=== PATIENT | female | born 1955 | race Caucasian/White ===

== ENCOUNTER → 2016-08-13 | Outpatient (CLI) | payer MEDICAID ==
--- NOTE | 2016-08-13 17:00 | CT ---
CT Scan of the Abdomen and Pelvis (Without IV Contrast) Clinical Indications: Evaluate left lower quadrant hernia. Comparison: November 09, 2009. Technique: No intravenous contrast was given. Multidetector helical CT imaging is performed from th e diaphragm to the symphysis pubis. Dose reduction techniques were utilized. The patient was imaged d uring Valsalva. Findings: There is patchy scarring at the right base that is stable compared to November 2009. There is a multilevel fusion from the lower thoracic spine through the sacrum. The liver, spleen, kidneys, pa ncreas, and adrenals are unremarkable. Small bowel is unremarkable. There is an ostomy in the right l ower quadrant. There is some thinning of the abdominal musculature in the left lower quadrant without definite hernia. Impressions 1. Diastasis of the abdominal musculature in the left lower quadrant without evidence of hernia. 2. Right lower quadrant ostomy. 3. Multilevel fusion T11 through the sacrum.
== END ==
LOC: FIMAGING 14:13
PROVIDERS: ATTEND Surgery
DX: M62.08 Separation of muscle (nontraumatic), other site (principal)

== ENCOUNTER 2016-11-08 17:35 | Emergency (ER) | payer MEDICAID ==
--- NOTE | 2016-11-08 18:02 | EDPHY ---
H & P Stated Complaint: tripped at home(hasn't been sleeping)hit face/ Time Seen by Provider: 11/08/16 17:51 HPI/ROS: CHIEF COMPLAINT: Fall HISTORY OF PRESENT ILLNESS: Patient is a 60-year-old female who comes to the emergency department complaining of a headache and nasal deformity. She states that around 7 o'clock this morning she was extremely tired and just "stopped moving". She fell and hit her nose on the tile. She did not lose consciousness. She has had some swelling at the bridge of her nose however. no epistaxis, ever since she has had a mild headache and mild neck pain. She has a history of thoracic and lumbar spinal surgery for scoliosis. She also complains of mild right wrist pain. She has also had orthopedic surgery in her right wrist for previous fall. She denies syncope. She denies chest pain or shortness of breath. She denies palpitations. REVIEW OF SYSTEMS: Constitutional: denies: chills, fever, recent illness, recent injury EENTM: See HPI Respiratory: denies: cough, shortness of breath Cardiac: denies: chest pain, irregular heart rate, lightheadedness, palpitations Gastrointestinal/Abdominal: denies: abdominal pain, diarrhea, nausea, vomiting, blood streaked stools Genitourinary: denies: dysuria, frequency, hematuria, pain Musculoskeletal: See HPI Skin: denies: lesions, rash, jaundice, bruising Neurological: denies: headache, numbness, paresthesia, tingling, dizziness, weakness Hematologic/Lymphatic: denies: blood clots, easy bleeding, easy bruising Immunologic/allergic: denies: HIV/AIDS, transplant EXAM: GENERAL: Well-appearing, well-nourished and in no acute distress. HEAD: Small abrasion to left anterior forehead no hematoma or crepitus , normocephalic. EYES: Pupils equal round and reactive to light, extraocular movements intact, sclera anicteric, conjunctiva are normal. ENT: TMs normal, nares patent, bruising and swelling to nasal bridge, no laceration, oropharynx clear without exudates. Moist mucous membranes. NECK: Normal range of motion, supple without lymphadenopathy or JVD. LUNGS: Breath sounds clear to auscultation bilaterally and equal. No wheezes rales or rhonchi. HEART: Regular rate and rhythm without murmurs, rubs or gallops. ABDOMEN: Soft, nontender, normoactive bowel sounds. No guarding, no rebound. No masses appreciated. BACK: No CVA tenderness, no spinal tenderness, step-offs or deformities EXTREMITIES: Normal range of motion, no pitting or edema. No clubbing or cyanosis. NEUROLOGICAL: Cranial nerves II through XII grossly intact. Normal speech, normal gait. 5/5 strength, normal movement in all extremities, normal sensation PSYCH: Normal mood, normal affect. SKIN: Warm, dry, normal turgor, no visible rashes or lesions. Source: Patient Exam Limitations: No limitations - Personal History Current Tetanus/Diphtheria Vaccine: Unsure Tetanus Vaccine Date: < 10 YEARS - Medical/Surgical History Hx Asthma: No Hx Chronic Respiratory Disease: No Hx Diabetes: No Hx Cardiac Disease: No Hx Renal Disease: No Hx Cirrhosis: No Hx Alcoholism: No Hx HIV/AIDS: No Hx Splenectomy or Spleen Trauma: No Other PMH: Chronic pain./pain management. back fusion. ileostomy, ulcerative colitis, PE - Family History Significant Family History: No pertinent family hx - Social History Smoking Status: Never smoked Alcohol Use: None Drug Use: None Constitutional: Initial Vital Signs Temperature (C) 36.5 C 11/08/16 17:38 Heart Rate 69 11/08/16 17:38 Respiratory Rate 20 11/08/16 17:38 Blood Pressure 156/99 H 11/08/16 17:38 O2 Sat (%) 97 11/08/16 17:38 O2 Delivery Mode Room Air Allergies/Adverse Reactions: ibuprofen Allergy (Verified 11/08/16 17:36) peanut Allergy (Verified 11/08/16 17:36) NUTS Allergy (Uncoded 08/27/15 14:51) Home Medications: Medication Instructions Recorded Amitiza 08/27/15 Fentanyl 08/27/15 Hydromorphone 08/27/15 Lasix 08/27/15 Meloxicam 08/27/15 Medical Decision Making - Diagnostics Imaging: X-ray: Right wrist x-ray was obtained. I viewed the images myself on the PACS system. My interpretation of the images is: Negative for acute disease. The radiologist interpretation is negative for acute injury. Results: CT scan of the head and cervical spine was obtained. The results of the study are negative for acute traumatic injury. The study was read by Dr. Medrano. I viewed the images myself on the PACS system. ED Course/Re-evaluation: Head CT ordered in this adult patient for trauma for the following indication: Severe headache 6:45 p.m. we discussed her CT and imaging results. She is relieved. She is eager to be discharged. She declines further workup or testing at this time. Discussed indications for returning. Differential Diagnosis: Partial list of the Differential diagnosis considered include but were not limited to; head injury, neck injury, nasal bone fracture, wrist injury and although unlikely based on the history and physical exam, I also considered non accidental trauma, infection. I discussed these differential diagnoses and the plan with the patient as well as the usual and expected course. The patient understands that the diagnosis is provisional and that in medicine we are not always correct and that further workup is often warranted. Usual and customary warnings were given. All of the patient's questions were answered. The patient was instructed to return to the emergency department should the symptoms at all worsen or return, otherwise to followup with the physician as we discussed. Departure - Departure Disposition: Home, Routine, Self-Care Clinical Impression: Contusion Qualifiers: Encounter type: initial encounter Contusion area: head Contusion of head detail : nose Qualified Code(s): S00.33XA - Contusion of nose, initial encounter Condition: Fair Instructions: Facial Contusion (ED) Referrals: Tracey Brody MD [Primary Care Provider] - As per Instructions
[2016-11-08 19:06] VITALS: BP 148/89; PULSE 68; RESP 18; TEMP 97.9; O2SAT 95
== END 2016-11-08 19:05 | disposition home or self-care (01) ==
DX: S00.33XA Contusion of nose, initial encounter (principal); Z91.010 Allergy to peanuts; W01.198A Fall on same level from slipping, tripping and stumbling with subsequent striking against other object, initial encounter; Y92.009 Unspecified place in unspecified non-institutional (private) residence as the place of occurrence of the external cause

== ENCOUNTER 2016-12-08 21:44 | Emergency (ER) | payer MEDICAID ==
--- NOTE | 2016-12-08 21:53 | EDPHY ---
H & P Time Seen by Provider: 12/08/16 21:49 - Personal History Tetanus Vaccine Date: < 10 YEARS - Medical/Surgical History Hx Asthma: No Hx Chronic Respiratory Disease: No Hx Diabetes: No Hx Cardiac Disease: No Hx Renal Disease: No Hx Cirrhosis: No Hx Alcoholism: No Hx HIV/AIDS: No Hx Splenectomy or Spleen Trauma: No Other PMH: Chronic pain./pain management. back fusion. ileostomy, ulcerative colitis, PE - Social History Smoking Status: Never smoked Allergies/Adverse Reactions: ibuprofen Allergy (Verified 11/08/16 17:36) peanut Allergy (Verified 11/08/16 17:36) NUTS Allergy (Uncoded 08/27/15 14:51) Home Medications: Medication Instructions Recorded Amitiza 08/27/15 Fentanyl 08/27/15 Hydromorphone 08/27/15 Lasix 08/27/15 Meloxicam 08/27/15 Medical Decision Making ED Course/Re-evaluation: CHIEF COMPLAINT: Nose injury two days ago. HISTORY OF PRESENT ILLNESS: The patient is a 60-year-old female who presents after striking her nose on a shelf in her bathroom two days ago. She did not experience any bleeding at that time or since then. She does not have any difficulty breathing. She denies other complaints at this time. REVIEW OF SYSTEMS: A 10 point review of systems was performed and is negative with the exception of the elements mentioned in the history of present illness. PHYSICAL EXAM: HR, BP, O2 Sat, RR. Temp noted General Appearance: Alert, well hydrated, appropriate, and non-toxic appearing. Head: Atraumatic without scalp tenderness or obvious injury Eyes: Pupils equal, round, reactive to light and accommodation, EOMI, no trauma , no injection. Ears: Clear bilaterally, no perforation, normal landmarks Nose: No rhinorrhea, clear. Mild swelling. No septal hematoma. Throat: There is no erythema or exudates, no lesions, normal tonsils, mucus membranes moist. Neck: Supple, 2+ carotid upstroke, nontender, no lymphadenopathy. Respiratory: No retractions, no distress, no wheezes, and no accessory muscle use. Lungs are clear to auscultation bilaterally. Cardiovascular: Regular rate and rhythm, no murmurs, rubs, or gallops. Bilateral carotid, radial, dorsalis pedis, and posterior tibial pulses intact. Good capillary refill all extremities. Gastrointestinal: Abdomen is soft, nontender, non-distended, no masses, no rebound, no guarding, no peritoneal signs. Musculoskeletal: Normal active ROM of all extremities, atraumatic. Neurological: Alert, appropriate, and interactive. The patient has normal DTRs and non-focal cranial nerves, motor, sensory, and cerebellar exam. Skin: No rashes, good turgor, no nodules on palpation. Past medical history: Ulcerative colitis, PE. Past surgical history: Spinal fusion. Family history: N/A. Social history: Here alone. DIFFERENTIAL DIAGNOSIS: The differential diagnosis includes but is not limited to: nasal fracture, hematoma, contusion. MEDICAL DECISION MAKIN-year-old female presents with mildly swollen nose after she struck it 2 days ago. She has not bled at all from the injury. There is no evidence of septal hematoma. She can breathe well out of both nostrils. I discussed the treatment options with her. I explained I have limited ability to treat this in the ER. She will be given a plastic surgeon follow up. She is comfortable with this plan. Departure - Departure Disposition: Home, Routine, Self-Care Clinical Impression: Nasal contusion Qualifiers: Encounter type: initial encounter Qualified Code(s): S00.33XA - Contusion of nose, initial encounter Condition: Good Instructions: Nasal Contusion (ED) Additional Instructions: Call Dr. Hernandez, plastic surgery, tomorrow to set up a follow up appointment. Return for any serious worsening of condition. Referrals: Tracey Brody MD [Primary Care Provider] - As per Instructions Derrick Hernandez MD [Medical Doctor] - As per Instructions Report Scribed for: Rusty Bear Report Scribed by: Uriel Whitaker Date of Report: 12/08/16 Time of Report: 21:53
[2016-12-08 22:00] VITALS: BP 144/92; PULSE 85; RESP 16; TEMP 97.9; O2SAT 97
== END 2016-12-08 22:01 | disposition home or self-care (01) ==
DX: S00.33XA Contusion of nose, initial encounter (principal); W22.8XXA Striking against or struck by other objects, initial encounter; Y92.091 Bathroom in other non-institutional residence as the place of occurrence of the external cause

== ENCOUNTER 2016-12-16 22:46 | Emergency (ER) | payer MEDICAID ==
--- NOTE | 2016-12-16 23:45 | EDPHY ---
H & P Stated Complaint: pain, reddness and swell in L leg, no trauma Time Seen by Provider: 12/16/16 23:06 HPI/ROS: Chief Complaint: Leg pain and swelling HPI: 60-year-old woman noticed pain in her foot last night. Woke up this morning with an area of redness and her front of her left leg with some swelling. She is concerned about a possible blood clot in her leg. No chest pain or shortness of breath. No history of DVTs or blood clots in the past. No family history of DVTs. No periods of immobility or travel. Fevers or chills. Denies any trauma to that area. No nausea or vomiting. ROS: 10 point Review of Systems is negative except as noted in the HPI. PMH: Colitis status post colectomy and ostomy, chronic back pain secondary to spinal surgeon scoliosis repair Medications: Pain medications Allergies: Ibuprofen Social History: No smoking, occasional alcohol, no recreational drug use Family History: non-contributory Physical Exam: Gen: Awake, Alert, No Distress HEENT: Nose: no rhinorrhea Eyes: PERRLA, EOMI Mouth: Moist mucosa Neck: Supple, no JVD Chest: nontender, lungs clear to auscultation Heart: S1, S2 normal, no murmur Abd: Soft, non-tender, no guarding Back: no CVA tenderness, no midline tenderness Ext: mild left calf tenderness. Mild left calf swelling, small area of erythema on the anterior left pitts, is not warm to touch. Mildly cellulitic appearing Neuro: CN II-XII intact, Sensation grossly intact, Strength 5/5 in bilateral upper and lower extremities - Personal History Current Tetanus/Diphtheria Vaccine: Yes Current Tetanus Diphtheria and Acellular Pertussis (TDAP): Yes Tetanus Vaccine Date: < 10 YEARS - Medical/Surgical History Hx Asthma: No Hx Chronic Respiratory Disease: No Hx Diabetes: No Hx Cardiac Disease: No Hx Renal Disease: No Hx Cirrhosis: No Hx Alcoholism: No Hx HIV/AIDS: No Hx Splenectomy or Spleen Trauma: No Other PMH: Chronic pain/pain management, back fusion,. ileostomy, ulcerative colitis, PE, right wrist surgery - Social History Smoking Status: Never smoked Constitutional: Initial Vital Signs Temperature (C) 36.7 C 12/16/16 23:07 Heart Rate 91 12/16/16 23:07 Respiratory Rate 16 12/16/16 23:07 Blood Pressure 260/102 H 12/16/16 23:07 O2 Sat (%) 94 12/16/16 23:07 O2 Delivery Mode Room Air Allergies/Adverse Reactions: ibuprofen Allergy (Verified 11/08/16 17:36) peanut Allergy (Verified 11/08/16 17:36) NUTS Allergy (Uncoded 08/27/15 14:51) Home Medications: Medication Instructions Recorded Amitiza 08/27/15 Fentanyl 08/27/15 Hydromorphone 08/27/15 Lasix 08/27/15 Meloxicam 08/27/15 Cephalexin [Keflex (*)] 500 mg PO Q6H #28 cap 12/17/16 Medical Decision Making - Diagnostics Imaging Results: Ultrasound is negative for acute DVT per Dr. Howard Imaging: Discussed imaging studies w/ call center specialist Radiologist ED Course/Re-evaluation: Patient with small area of left leg erythema. She is negative for DVT. Is could represent an early cellulitis. Will start her on some Keflex. Follow up with primary care physician in 2-3 days for re-evaluation. Departure - Departure Disposition: Home, Routine, Self-Care Clinical Impression: Cellulitis Condition: Good Instructions: Cellulitis (ED), Cephalexin (By mouth) Additional Instructions: Follow up with primary care physician in 2-3 days for re-evaluation. Return to the emergency depart for increasing redness, streaking up her leg, fevers, chills, or any other concerns. Referrals: Tracey Brody MD [Primary Care Provider] - As per Instructions Prescriptions: Cephalexin [Keflex (*)] 500 mg PO Q6H #28 cap
[2016-12-17 02:12] VITALS: BP 139/91; PULSE 74; RESP 14; TEMP 97.5; O2SAT 97
[2016-12-17] MEDS ORDERED: CEPHALEXIN 500MG PREPACK#4 BTL TAKEHOME ONE (02:17)
== END 2016-12-17 02:42 | disposition home or self-care (01) ==
DX: L03.116 Cellulitis of left lower limb (principal)

== ENCOUNTER 2017-08-09 01:42 | Emergency (ER) | payer MEDICAID ==
[2017-08-09 01:50] VITALS: BP 128/86; PULSE 97; RESP 18; TEMP 98.6; O2SAT 97
--- NOTE | 2017-08-09 02:23 | EDPHY ---
H & P Stated Complaint: L ankle pain, swelling, difficulty walking Time Seen by Provider: 08/09/17 02:17 HPI/ROS: Chief Complaint: Left ankle swelling HPI: 61-year-old woman noticed 24 hr ago some redness and discomfort on the inside of her left ankle. She has a similar episode in the past was diagnosed with cellulitis. She states that it is uncomfortable and has been warm to the touch. She has had no fever or chills. No calf pain or swelling. No chest pain or shortness of breath. It does hurt when she ambulates. She has not been taking any medications for this. ROS: 10 point Review of Systems is negative except as noted in the HPI. PMH: Ulcerative colitis status post ileostomy Social History: No smoking Family History: non-contributory Physical Exam: Gen: Awake, Alert, No Distress HEENT: Nose: no rhinorrhea Eyes: PERRLA, EOMI Mouth: Moist mucosa Neck: Supple, no JVD Ext:she had area of erythema on the medial aspect of her left leg proximal to the ankle joint. She has no calf tenderness, no calf swelling. She has full range of motion of pain. Is no erythema or tenderness over the joint. Full range of motion of the ankle joint without difficulty. Is non circumferential. There is no streaking. Skin: Per extremity exam Neuro: CN II-XII intact, Sensation grossly intact, Strength 5/5 in bilateral upper and lower extremities - Personal History Tetanus Vaccine Date: < 10 YEARS - Medical/Surgical History Hx Asthma: No Hx Chronic Respiratory Disease: No Hx Diabetes: No Hx Cardiac Disease: No Hx Renal Disease: No Hx Cirrhosis: No Hx Alcoholism: No Hx HIV/AIDS: No Hx Splenectomy or Spleen Trauma: No Other PMH: Chronic pain/pain management, back fusion,. ileostomy, ulcerative colitis, PE, right wrist surgery - Social History Smoking Status: Never smoked Constitutional: Initial Vital Signs Temperature (C) 37.0 C 08/09/17 01:48 Heart Rate 97 08/09/17 01:48 Respiratory Rate 18 08/09/17 01:48 Blood Pressure 128/86 H 08/09/17 01:48 O2 Sat (%) 97 08/09/17 01:48 O2 Delivery Mode Room Air Allergies/Adverse Reactions: ibuprofen Allergy (Verified 08/09/17 01:47) peanut Allergy (Verified 08/09/17 01:47) NUTS Allergy (Uncoded 08/09/17 01:47) Home Medications: Medication Instructions Recorded Amitiza 08/27/15 Fentanyl 08/27/15 Hydromorphone 08/27/15 Lasix 08/27/15 Meloxicam 08/27/15 Cephalexin [Keflex (*)] 500 mg PO Q6H #28 cap 12/17/16 Cephalexin [Keflex (*)] 500 mg PO Q6H #40 cap 08/09/17 Medical Decision Making ED Course/Re-evaluation: Patient has findings consistent with cellulitis. She has no calf tenderness or swelling suggesting a DVT. There is no erythema or lying the joints suggestive of infected joint. Start her on Keflex and refer her to her primary care physician for follow-up. She states she has an appointment already scheduled on Friday. She will return for worsening. Departure - Departure Disposition: Home, Routine, Self-Care Clinical Impression: Cellulitis Condition: Good Instructions: Cellulitis (ED) Additional Instructions: Please take your full course of antibiotics. Follow up with her primary care physician as scheduled in 3 days. Return to the emergency department for increasing redness, fevers, worsening pain, or any other concerns. Referrals: Tracey Brody MD [Primary Care Provider] - As per Instructions Prescriptions: Cephalexin [Keflex (*)] 500 mg PO Q6H #40 cap
[2017-08-09] MEDS ORDERED: CEPHALEXIN 500MG PREPACK#4 BTL TAKEHOME ONE (02:25)
== END 2017-08-09 02:41 | disposition home or self-care (01) ==
DX: L03.116 Cellulitis of left lower limb (principal); Z91.010 Allergy to peanuts

== ENCOUNTER 2017-10-04 16:19 | Emergency (ER) | payer MEDICAID ==
[2017-10-04 16:25] VITALS: RESP 18; TEMP 98.2
--- NOTE | 2017-10-04 17:06 | EDPHY ---
General Time Seen by Provider: 10/04/17 16:58 Narrative: CHIEF COMPLAINT: Knee pain, injury HISTORY OF PRESENT ILLNESS: Patient complains of right knee pain status post injury. She reports slipping and twisting her right knee on Friday. This was in her own home. After twisting it she fell, with her knee bent at approximately 90. She struck her knee on a hard tile floor. She did not injure herself anywhere else. Since then she has had some pain and swelling of the knee, more over the lateral and anterior aspect. Pain has improved but not resolved. She does have persistent swelling on the lateral aspect of the knee. She is able to ambulate but with some pain. No numbness or tingling distally. No pain in the ipsilateral foot, ankle or hip. No other associated complaints or modifying factors. REVIEW OF SYSTEMS: Ten systems reviewed and are negative unless otherwise noted in the HPI PCP: Dr. Franklyn Brody SPECIALISTS: Orthopedist in [place] at [facility] PAST MEDICAL HISTORY: Ulcerative colitis, osteoarthritis, lumbar stenosis PAST SURGICAL HISTORY: Recent removal are of lumbar surgical hardware. SOCIAL HISTORY: Nonsmoker. Occasional alcohol. No drug use. Lives here locally. Originally from [place]. Retired FAMILY HISTORY: Noncontributory EXAMINATION General Appearance: Alert, no distress Head: normocephalic, atraumatic Cardiovascular: Regular rate. Symmetric DP and PT pulses 2+. Brisk cap refill on the toes of the right foot. Back: non-tender, no bony abnormalities. There are 2 surgical incisions on the lumbar soft tissue regions with dressings that are clean, dry and intact. I did not remove the dressings. Neurological: A&O, nonfocal, normal gait. Patellar reflexes symmetric. Strength is 5/5 in both ankles. Normal proprioception of the right great toe. Skin: Warm and dry, no rash. Surgical incisions as above. No laceration, abrasion or ecchymosis of the right knee. Extremities: Tenderness of the right knee on the anterior midline and lateral joint line. No crepitus. No instability. Negative drawer test. Range of motion is symmetric to the left. Neurovascular intact distal to the knee pain. Psychiatric: Mood and affect normal DIFFERENTIAL DIAGNOSES: Including but not limited to sprain, strain, fracture, hemarthrosis, effusion, subluxation MDM: 5:05 p.m. Acute right knee pain that I suspect is a sprain type injury. Low clinical suspicion for bony injury but she does have bony tenderness ago I have ordered x -ray. She is neuro intact distally. She is ambulatory without assistance. No injury elsewhere a 5:20 p.m. My interpretation of the x-ray without the aid of the radiologist is no acute fracture. There are some osteoarthritic changes. 5:35 p.m. X-ray has been read as negative for any acute findings by radiologist. I have informed the patient of this. We provided a disc of the images as she may follow up with Orthopedics she saw previously at a different location. I provided the on-call orthopedist darren for her follow-up should she needed. We discussed weight-bearing as tolerated. We discussed ice and elevation. We discussed taking her previous prescription of meloxicam for 5-7 days as needed. We discussed ED precautions. I have answered all her questions and she is discharged home stable condition. SUPERVISION: This patient was independently evaluated without direct involvement of or examination by the attending physician. - Diagnostics Imaging Results: Imaging Impressions Knee X-Ray 10/04/17 17:06 Impression: Negative for fracture with a joint effusion noted. - History Smoking Status: Former smoker - Objective Vital Signs: Initial Vital Signs Temperature (C) 98.2 F 10/04/17 16:20 Heart Rate 65 10/04/17 16:20 Respiratory Rate 18 10/04/17 16:20 Blood Pressure 139/59 H 10/04/17 16:20 O2 Sat (%) 97 10/04/17 16:20 O2 Delivery Mode Room Air Allergies/Adverse Reactions: ibuprofen Allergy (Unknown, Verified 10/04/17 16:25) peanut Allergy (Verified 10/04/17 16:20) NUTS Allergy (Uncoded 08/09/17 01:47) Home Medications: Medication Instructions Recorded Amitiza 08/27/15 Hydromorphone 08/27/15 Lasix 08/27/15 Meloxicam 08/27/15 Departure - Departure Disposition: Home, Routine, Self-Care Clinical Impression: Right knee sprain Qualifiers: Encounter type: initial encounter Involved ligament of knee: unspecified ligament Qualified Code(s): S83.91XA - Sprain of unspecified site of right knee , initial encounter Condition: Good Instructions: Knee Sprain (ED) Additional Instructions: 1. Weightbearing as tolerated 2. Follow up with your established orthopedist or the on-call orthopedist and I have provided on your paperwork 3. Ice and elevate often 4. ED precautions as discussed Referrals: Tracey Brody MD [Primary Care Provider] - As per Instructions Cooper Way MD [Medical Doctor] - As per Instructions
[2017-10-04 17:47] VITALS: BP 135/83; PULSE 74; O2SAT 96
== END 2017-10-04 17:51 | disposition home or self-care (01) ==
LOC: EEVIPCON 16:19
DX: S83.91XA Sprain of unspecified site of right knee, initial encounter (principal); Z87.891 Personal history of nicotine dependence; W01.198A Fall on same level from slipping, tripping and stumbling with subsequent striking against other object, initial encounter

== ENCOUNTER → 2018-07-01 | Outpatient (CLI) | payer MEDICAID | LOC: FIMAGING 13:18 | PROVIDERS: ATTEND Family Medicine | DX: N28.1 Cyst of kidney, acquired (principal) ==

== ENCOUNTER 2018-11-22 19:10 | Emergency (ER) | payer MEDICAID ==
[2018-11-22 19:18] VITALS: BP 122/84
--- NOTE | 2018-11-22 19:45 | EDPHY ---
General Time Seen by Provider: 11/22/18 19:44 Narrative: CLINICAL IMPRESSION: Right knee pain and swelling ASSESSMENT/PLAN: Patient is a 62-year-old female who presents with complaint of acute on chronic right knee pain. Patient is nontoxic-appearing, she is in no acute distress on arrival. Patient discloses that she has followed up with her primary care doctor, has received physical therapy and has even been to the ortho urgent care with recommendation for formal orthopedic surgery follow-up for her ongoing right knee pain and swelling. She has not followed up as previously recommended. She has had no new injury to warrant repeat imaging today. There were no findings to suggest fracture, dislocation, compartment syndrome, DVT, cellulitis, septic arthritis or neurovascular compromise. Her history and physical examination is most consistent with acute on chronic right knee pain and swelling. Patient has not been using compression, and Kirill wrap was placed. She was able to ambulate without difficulty and independently. She already has an appointment scheduled with her primary care provider on Friday, I discussed the possibility of requiring additional imaging to include MRI versus additional physical therapy. The patient will continue compression, elevation and activity as tolerated. Return precautions discussed-patient to return to the emergency Department for significantly worsening or uncontrolled pain, significant swelling, numbness or tingling of the extremity, paleness or coolness of her digits, fever or for any other concerning symptom. The patient verbalizes understanding and she is in agreement with this plan. DIFFERENTIAL DX: Knee injury several months prior including but not limited to effusion, fracture , ACL injury, contusion, muscular strain, and meniscus injury. ED COURSE: 2000: Records reviewed, patient originally seen and evaluated October 04 2017, x-ray was performed at that time which revealed no acute bony abnormality. CHIEF COMPLAINT: Right knee pain HPI: Patient is a 62-year-old female with a history of remote knee injury who presents to the emergency department with ongoing knee pain. Patient reports several months prior she had a fall striking her knee on the tile floor. She reports being seen and evaluated in the emergency department at that time. Patient reports she followed up with her primary care provider as directed, has completed physical therapy but continues to have pain. She also reports that she was seen and evaluated by Ortho urgent care, they recommended physical therapy and follow-up which she has not done. She denies any new injury. She is just frustrated that she continues to have ongoing pain and swelling. She denies any redness of the joint, she has had no fevers. No history of surgery to this knee. Patient reports that pain increases with standing for long periods of time, she is noting swelling on the medial superior aspect. She has not been taking anything for pain, she has not been using any compression. She denies any other injury or complaint. PAST MEDICAL HISTORY: Ulcerative colitis, osteoarthritis, lumbar stenosis Pertinent Past Surgical History: Bowel resection, spine surgery Social History: Denies cigarette smoking or illicit drug use ROS: A full 10 point review of systems was negative except for those mentioned in HPI. PHYSICAL EXAM: General Appearance: Alert, well-appearing and in no acute distress. HENT: Normocephalic, atraumatic TMs are clear bilaterally no perforation or FB, no injection, no evidence of serous or mucopurulent otitis. Oropharynx clear is no erythema or exudates, no tonsillar hypertrophy or asymmetry. Dentition without abnormality. Eyes: PERRLA, no acute vision change, nystagmus, swelling, discharge, pain or photosensitivity. Conjunctiva pink, no pallor or injection Neck: Supple, nontender, no lymphadenopathy, no midline pain, FROM. Respiratory: There are no retractions, lungs are clear to auscultation. Cardiac: Regular rate and rhythm, no murmurs or gallops. Gastrointestinal: Abdomen is soft, nontender, bowel sounds normal, no masses/ hernia, no rigidity, guarding or focal peritoneal findings. Skin: Warm, dry, no rashes, no nodules on palpation. Upper Extremities: Bilateral upper extremities are unremarkable. Intact distal pulses, Full range of motion intact, no tenderness, no ecchymosis or edema Lower Extremities: Left lower extremity is unremarkable- Intact distal pulses, No edema, No tenderness, No cyanosis, full range of motion intact. Right thigh compartment is soft and nontender. Patient has generalized mild edema to the superior medial knee, she has generalized tenderness to palpation. She has no posterior fullness or tenderness. She does have some palpable varicosities on her inner leg that are nontender and without erythema. There is no anterior or posterior laxity. There is no erythema. She has no pain with passive range of motion. Right lower extremities otherwise unremarkable. 2+ dorsalis pedis. No calf tenderness bilaterally. MEDICAL DECISION MAKING: Patient was seen independently. Secondary supervising physician at time of evaluation was Dr. Lopez, he did not evaluate this patient. Diagnosis: Acute on chronic right knee pain and swelling. Summary: See Assessment and Plan for summary of ED visit Clinical lab tests: Not applicable. Independent visualization of images, tracing, or specimens: Not applicable. Decision to obtain medical records or history from someone other than the patient: No Review / Summarize previous medical records: Yes Discussed patient with another provider: Yes, Dr. Lopez Patient Progress: Stable, discharge. - History Smoking Status: Former smoker - Objective Vital Signs: Initial Vital Signs Temperature (C) 36.8 C 11/22/18 19:16 Heart Rate 99 11/22/18 19:16 Respiratory Rate 16 11/22/18 19:16 Blood Pressure 122/84 H 11/22/18 19:16 O2 Sat (%) 98 11/22/18 19:16 O2 Delivery Mode Room Air Allergies/Adverse Reactions: ibuprofen Allergy (Unknown, Verified 11/22/18 19:15) peanut Allergy (Verified 11/22/18 19:15) NUTS Allergy (Uncoded 11/22/18 19:15) Home Medications: Medication Instructions Recorded Amitiza 08/27/15 Hydromorphone 08/27/15 Lasix 08/27/15 Meloxicam 08/27/15 Departure - Departure Disposition: Home, Routine, Self-Care Clinical Impression: Knee pain, chronic Condition: Good Instructions: Swollen Knee Joint (ED), Knee Pain (ED) Additional Instructions: DISCHARGE INSTRUCTIONS FROM YOUR DOCTOR Thank you for visiting our emergency department today. Please keep in mind that discharge from the emergency department does not mean that there is nothing wrong - it simply means that we have not identified an emergency condition that requires further evaluation or treatment in the hospital. Follow-up with your primary care provider on Friday as we discussed. You have been provided an orthopedic referral, please follow-up. Ice on and off to the affected knee. Elevate as much as possible. Wear the KIRILL wrap for compression to help decrease the swelling. Limit your activity, weight-bearing as tolerated. For pain control: You may take Tylenol, I recommend 500-1000 mg every 6-8 hours as needed. Take with food and a full glass of water. Stop taking if this is upsetting her stomach. Do not exceed 4000 mg in a 24 hr period. Call and schedule a follow-up re-evaluation appointment with your primary care physician in the next 3-7 days. As discussed, you may require further evaluation and/or treatment, ie: an MRI, physical therapy, and/or an orthopedic consultation-- all depending on your healing course. Return for increased or unmanageable pain, new injury, new site of pain, numbness, tingling, weakness of the leg, coolness or discoloration of the leg/ foot/ankle, redness, swelling, fever, difficulty breathing, chest pain, calf pain, ankle swelling, severe headache, back pain, or for any other new, worsening, or worrisome symptoms. People present with illnesses and injuries in different ways, and it is always possible that we have missed something. You may always return for re-evaluation if symptoms worsen or if they are not improving or if you develop new/different symptoms. Again, thank you for choosing our emergency department. We hope that you feel better. Referrals: Tracey Brody MD [Primary Care Provider] - 1-2 days without fail Lee Mcclain MD [Medical Doctor] - 2-3 days, call for appt.
== END 2018-11-22 20:07 | disposition home or self-care (01) ==
DX: M25.561 Pain in right knee (principal)

== ENCOUNTER 2019-02-03 17:31 | Emergency (ER) | payer MEDICAID | END 2019-02-03 21:38 | disposition home or self-care (01) ==

== ENCOUNTER 2019-02-05 19:47 | Emergency (ER) | payer MEDICAID | END 2019-02-05 20:34 | disposition home or self-care (01) ==